=== PATIENT | female | born 2000 | race Caucasian/White ===

== ENCOUNTER 2022-04-13 22:14 | Emergency (ER) | payer OTHER, MEDICAID ==
[~2022-04-13] VITALS: Ht 160 cm; Wt 50.0 kg
[2022-04-13] MEDS ORDERED: TETanus/Pertussis (Acell)/Diphther VAC/PF (Tdap-Adult) 0.5ml syringe IMVAC ONE (22:30)
[2022-04-14 00:24] VITALS: BP 110/75
== END 2022-04-14 00:26 ==
LOC: ER 22:15
DX: S41.111A Laceration without foreign body of right upper arm, initial encounter (principal); X58.XXXA Exposure to other specified factors, initial encounter; Y93.89 Activity, other specified; Y92.89 Other specified places as the place of occurrence of the external cause; Y99.8 Other external cause status
CPT/HCPCS: 12002; 90471; 90715; 99283; A6222